=== PATIENT | female | born 1990 | race African-American/Black ===

== ENCOUNTER 2018-06-25 10:58 | Emergency (ER) | payer OTHER ==
[~2018-06-25] VITALS: Ht 157.5 cm; Wt 84.4 kg
[~2018-06-25 10:58] MED LIST: AFRIN15 ML NAS; AMOXICILLIN500 MG PO; AVIANE1 EACH PO; CITRUCEL POWDE454 GM PO; COLACE100 MG PO; HYDROCHLOROTHIA25 MG PO; IBUPROFEN800 MG PO; KEFLEX500 MG PO; MAGNESIUM CITR296 ML PO; METHYLPREDNISOLO4 M1 PO; NORCO 5-325 TA1 EACH PO; NORCO 7.5-3251 EACH PO; ORTHO-NOVUM1 EAC1 PO; PRENA1 CHEW TA1.4 MG PO; PREPARATION H1 EAC3 RC; SALINE NOSE SPR45 ML NAS; ULTRAM50 MG PO; VENTOLIN HFA18 GM INH; ZITHROMAX250 MG PO; ZOFRAN ODT8 MG PO
== END 2018-06-25 14:14 | disposition home or self-care (01) ==
LOC: ED 10:58
DX: S00.83XA Contusion of other part of head, initial encounter (principal); F19.10 Other psychoactive substance abuse, uncomplicated; F10.10 Alcohol abuse, uncomplicated; Y90.6 Blood alcohol level of 120-199 mg/100 ml; M26.602 Left temporomandibular joint disorder, unspecified; R41.82 Altered mental status, unspecified; X58.XXXA Exposure to other specified factors, initial encounter; I10 Essential (primary) hypertension; F17.200 Nicotine dependence, unspecified, uncomplicated; Z88.0 Allergy status to penicillin
CPT/HCPCS: 70150; 70450; 80053; 80176; 81001; 84703; 85025; 96361; 96374; 99284-25; G0480; J2405; J7030

== ENCOUNTER 2018-12-14 22:04 | Emergency (ER) | payer OTHER ==
[~2018-12-14] VITALS: Ht 157.5 cm; Wt 84.4 kg
--- OUTSIDE RECORDS SUMMARY | 2018-12-14 22:06 | XMS ---
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 Us[facility] has no Care Guidelines for this patient. Hilario VISIT COUNT (12 MO.) 4 ELOY ePreyra TOTAL 4 NOTE: Visits indicate total known visits. ED/C VISIT TRACKING (12 MO.) 12/14/2018 22:05 [facility] [place] TYPE: Emergency COMPLAINT: - LEFT SIDE PAIN/INJURY 06/25/2018 10:59 [facility] [place] TYPE: Emergency COMPLAINT: - ALTERED MENTAL STATUS DIAGNOSES: - Left temporomandibular joint disorder, unspecified - Allergy status to penicillin - Other psychoactive substance abuse, uncomplicated - Exposure to other specified factors, initial encounter - Headache - Anxiety disorder, unspecified - Nicotine dependence, unspecified, uncomplicated - Alcohol abuse, uncomplicated - Altered mental status, unspecified - Blood alcohol level of 120-199 mg/100 ml - Contusion of other part of head, initial encounter - Essential (primary) hypertension 05/20/2018 12:32 [facility] [place] TYPE: Emergency COMPLAINT: - MOUTH PAIN DIAGNOSES: - Other lesions of oral mucosa 01/24/2018 10:51 E[facility] [place] TYPE: Emergency COMPLAINT: - BREATHING PROBLEMS DIAGNOSES: - Essential (primary) hypertension - Unspecified asthma, uncomplicated - Shortness of breath - Acute upper respiratory infection, unspecified - Allergy status to penicillin - Nicotine dependence, unspecified, uncomplicated INPATIENT VISIT TRACKING (12 MO.) No inpatient visits to display in this time frame [email or web address]
[2018-12-14] MEDS ORDERED: TRAMADOL HCL50 MG PO (23:06)
== END 2018-12-14 23:20 | disposition home or self-care (01) ==
LOC: ED 22:04
DX: S20.212A Contusion of left front wall of thorax, initial encounter (principal); I10 Essential (primary) hypertension; F17.200 Nicotine dependence, unspecified, uncomplicated; Z88.0 Allergy status to penicillin; Y04.0XXA Assault by unarmed brawl or fight, initial encounter
CPT/HCPCS: 71100; 99283-25

== ENCOUNTER 2020-05-20 22:01 | Emergency (ER) | payer OTHER ==
[~2020-05-20] VITALS: Ht 157.5 cm; Wt 88.5 kg
[~2020-05-20 22:01] MED LIST changes: +TRAMADOL HCL50 MG PO
--- OUTSIDE RECORDS SUMMARY | 2020-05-20 22:04 | XMS ---
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 E.D. VISIT COUNT (12 MO.) [address] [place] [address] TOTAL 1 NOTE: Visits indicate total known visits. ED/UCC VISIT TRACKING (12 MO.) 05/20/2020 22:01 E[facility] [place] TYPE: Emergency COMPLAINT: - VAGINAL PAIN/ IUD PROBLEM INPATIENT VISIT TRACKING (12 MO.) No inpatient visits to display in this time frame [email or web address]
[2020-05-21] MEDS ORDERED: NORCO 5-325 TA1 EACH PO (00:14)
== END 2020-05-21 00:32 | disposition home or self-care (01) ==
LOC: ED 22:01
DX: O99.891 Other specified diseases and conditions complicating pregnancy (principal); R10.2 Pelvic and perineal pain; O16.1 Unspecified maternal hypertension, first trimester; O99.341 Other mental disorders complicating pregnancy, first trimester; F41.9 Anxiety disorder, unspecified; O99.331 Smoking (tobacco) complicating pregnancy, first trimester; F17.200 Nicotine dependence, unspecified, uncomplicated; Z88.0 Allergy status to penicillin; Z3A.01 Less than 8 weeks gestation of pregnancy
CPT/HCPCS: 76801; 76817; 80053; 81001; 84702; 84703; 85025; 86900; 86901; 99284-25; J1170; J2405

== ENCOUNTER 2020-09-04 08:58 | Emergency (ER) | payer OTHER ==
[~2020-09-04] VITALS: Ht 157.5 cm; Wt 85.7 kg
--- OUTSIDE RECORDS SUMMARY | 2020-09-04 09:00 | XMS ---
PreManage Notification: YESSICA LEWIS Security Manager Gas Events No recent Security Events currently on file CRITERIA MET - [employer] CARE PROVIDERS HARRY MOHR Nurse Practitioner: Women's Health 12/15/2018-Current PHONE: [phone] Care Guidelines exist for the following facilities: [facility] ( 08/11/2020 ) Hilario VISIT COUNT (12 MO.) 2 ELOY Pereyra TOTAL 2 NOTE: Visits indicate total known visits. ED/UCC VISIT TRACKING (12 MO.) 09/04/2020 08:58 E[facility] [place] TYPE: Emergency COMPLAINT: - BACK PAIN 05/20/2020 22:01 E[facility] [place] TYPE: Emergency COMPLAINT: - VAGINAL PAIN DIAGNOSES: - Allergy status to penicillin - Unspecified maternal hypertension, first trimester - Nicotine dependence, unspecified, uncomplicated - Less than 8 weeks gestation of - Anxiety disorder, unspecified - Other mental disorders complicating , first trimester - Other specified diseases and conditions complicating - Pelvic and perineal pain - Smoking (tobacco) complicating , first trimester INPATIENT VISIT TRACKING (12 MO.) No inpatient visits to display in this time frame [email or web address]
[2020-09-04] MEDS ORDERED: PREDNISONE20 MG PO (11:45)
[2020-09-04] MEDS ORDERED: CYCLOBENZAPRINE10 MG PO (11:45)
== END 2020-09-04 11:55 | disposition home or self-care (01) ==
LOC: ED 08:58
DX: M54.5 Low back pain (principal); I10 Essential (primary) hypertension; F17.200 Nicotine dependence, unspecified, uncomplicated; Z88.0 Allergy status to penicillin
CPT/HCPCS: 72100; 80048; 84703; 85025; 96374; 96375; 99283-25; 99406; J1100; J1885

== ENCOUNTER 2022-05-17 21:48 | Emergency (ER) | payer OTHER ==
[~2022-05-17] VITALS: Ht 157.5 cm; Wt 102.1 kg
[~2022-05-17 21:48] MED LIST changes: +CYCLOBENZAPRINE10 MG PO; +PREDNISONE20 MG PO
--- OUTSIDE RECORDS SUMMARY | 2022-05-17 21:50 | XMS ---
PreManage Notification: YESSICA LEWIS Security Materials Recycler Events No recent Security Events currently on file CRITERIA MET - [employer] CARE PROVIDERS HARRY MOHR Nurse Practitioner: Women's Health 12/15/2018-Current PHONE: [phone] Care Guidelines exist for the following facilities: [facility] ( 08/11/2020 ) Hilario VISIT COUNT (12 MO.) 1 ELOY Pereyra TOTAL 1 NOTE: Visits indicate total known visits. ED/UCC VISIT TRACKING (12 MO.) 05/17/2022 21:48 E[facility]Y [facility] [place] TYPE: Emergency COMPLAINT: - MEDICAL CLEARNACE INPATIENT VISIT TRACKING (12 MO.) No inpatient visits to display in this time frame [email or web address]
== END 2022-05-18 12:35 | disposition home or self-care (01) ==
LOC: ED 21:48
DX: R45.851 Suicidal ideations (principal); Z20.822 Contact with and (suspected) exposure to COVID-19
CPT/HCPCS: 36415; 72040; 72080; 73080; 80053; 81001; 81003; 84443; 84703; 85025; A9270; G0480